=== PATIENT | male | born 1995 | race Caucasian/White ===

== ENCOUNTER 2016-07-17 15:55 | Emergency (ER) | payer OTHER ==
[~2016-07-17] VITALS: Ht 180.3 cm; Wt 80.9 kg
[2016-07-17 18:05] LABS: EOSINOPHIL (%) 0.1 % (0-5); HEMATOCRIT 42.9 % (38.0-50.0); IMMATURE GRANULOCYTE (%) 0.3 % (0.0-0.7); IMMATURE GRANULOCYTE COUNT 0.5 K/uL; LYMPHOCYTE COUNT 2.6 K/uL (1.0-2.8); MCH 30.1 PG (29.0-34.0); MCHC 35.2 G/DL (30.0-36.0); MCV 85.5 FL (86-99); MEAN PLAT.VOLUME 11.2 uM^3 (9.0-12.4); MONOCYTE (%) 5.4 % (3-12); MONOCYTE COUNT 0.9 K/uL (0-0.8); NEUTROPHIL (%) 78.3 % (45-76); NEUTROPHIL COUNT 12.8 K/uL (1.8-6.4); PLATELET COUNT 291 K/uL (156-360); RBC DIS.WIDTH-CV 12.5 % (11.8-14.6); RBC DIS.WIDTH-SD 38.2 % (39-53); RED BLOOD COUNT 5.02 M/uL (4.00-5.50); WHITE BLOOD COUNT 16.4 K/uL (4.1-10.2)
[2016-07-17 18:21] LABS: CHLORIDE 109 mEq/L (99-109); POTASSIUM 4.1 mEq/L (3.7-5.4); SODIUM 138 mEq/L (136-147)
[2016-07-17 18:23] LABS: GLUCOSE 131 mg/dL (70-99)
[2016-07-17 18:24] LABS: ANION GAP 10 MEQ/L (2-14)
[2016-07-17 18:27] LABS: GFR ESTIMATE (CALCULATED) > 59 mL/min/
[2016-07-17 18:28] LABS: UREA NITROGEN (BUN) 18 mg/dL (9-23)
[2016-07-17] MEDS ORDERED: KEFLEX500 MG PO (20:31)
[2016-07-17] MEDS ORDERED: NORCO 5/3251 TABLET PO (20:34)
[2016-07-17 20:54] VITALS: BP 131/74
== END 2016-07-17 20:55 | disposition home or self-care (01) ==
LOC: EME 15:55
PROVIDERS: Physician Assistant
PROC: 0HQLXZZ Repair Left Lower Leg Skin, External Approach (ICD-10-PCS; principal; 2016-07-17)
DX: S81.012A Laceration without foreign body, left knee, initial encounter (principal); V00.328A Other snow-ski accident, initial encounter; Y93.23 Activity, snow (alpine) (downhill) skiing, snowboarding, sledding, tobogganing and snow tubing; Y92.838 Other recreation area as the place of occurrence of the external cause
CPT/HCPCS: 73590; 73706; 80048; 85025; 86850; 86900; 86901; 99281; 99285; J3010; S0020